=== PATIENT | male | born 1990 | race Caucasian/White ===

== ENCOUNTER 2023-03-13 09:31 | Day surgery (SDC) | payer BC ==
[~2023-03-13 09:31] MED LIST: Lactated Ringers 1,000 ML IV SCH; Sodium Chloride 0.9% 10 ML Syringe FLUSH PRN; Sodium Chloride 0.9% 10 ML Syringe FLUSH SCH
[2023-03-13] MEDS ORDERED: EPINEPHrine 1 MG/ML SDV ONE ×2 (11:41)
[2023-03-13] MEDS ORDERED: Bupivacaine 0.25% 10 ML SDV ONE (11:45)
[2023-03-13] MEDS ORDERED: Propofol 200 MG/20 ML SDV ONE (11:54)
[2023-03-13] MEDS ORDERED: Lidocaine 1% 4 ML ONE (11:59)
[2023-03-13] MEDS ORDERED: Midazolam 1 MG/ML 2 ML SDV ONE (11:59)
[2023-03-13] MEDS ORDERED: fentaNYL 100 MCG/2 ML SDV ONE ×2 (11:59→12:31)
[2023-03-13] MEDS ORDERED: Ondansetron 4 MG/2 ML SDV ONE (12:15)
[2023-03-13] MEDS ORDERED: Metoclopramide 10 MG/2 ML SDV ONE (12:15)
[2023-03-13] MEDS ORDERED: ceFAZolin 2 GM Vial ONE (12:18)
[2023-03-13] MEDS ORDERED: Dexmedetomidine 200 MCG/2 ML SDV ONE (12:23)
[2023-03-13] MEDS ORDERED: Ketorolac 30 MG/ML SDV ONE (12:33)
[2023-03-13] MEDS ORDERED: fentaNYL 100 MCG/2 ML SDV IVPUSH PRN (12:38)
[2023-03-13] MEDS ORDERED: HYDROmorphone 0.5 MG/0.5 ML Syringe IVPUSH PRN (12:38)
[2023-03-13] MEDS ORDERED: Acetaminophen/HYDROcodone 325-5 MG Tab PO PRN (13:32)
== END 2023-03-13 15:10 | disposition home or self-care (01) ==
LOC: JD.SDS 09:31
PROVIDERS: ATTEND Orthopaedic Surgery
DX: S83.242A Other tear of medial meniscus, current injury, left knee, initial encounter (principal); M25.562 Pain in left knee; G89.29 Other chronic pain; F17.229 Nicotine dependence, chewing tobacco, with unspecified nicotine-induced disorders; Z79.82 Long term (current) use of aspirin; Z79.899 Other long term (current) drug therapy; X58.XXXA Exposure to other specified factors, initial encounter
CPT/HCPCS: 01400; A9270-GY; J0171; J0690; J1885; J2250; J2405; J2704; J2765; J3010; J3490; J7120